=== PATIENT | male | born 1980 | race Asian ===

== ENCOUNTER 2019-11-28 19:29 | Emergency (ER) | payer OTHER, MEDICAID, SELFPAY ==
[2019-11-28 19:34] VITALS: BP 145/98; PULSE 89; RESP 16; TEMP 36.4; O2SAT 98
[2019-11-28] MEDS: IBUPROFEN 400 MG TABLET 800 MG PO (21:14)
[2019-11-28] MEDS: ACETAMINOPHEN 325 MG TABLET 975 MG PO (21:14)
[2019-11-28] MEDS: LIDO 1%/SOD BICARB 8.4% (10ML) 10 ML SYRINGE INJ (21:31)
[2019-11-28] MEDS: HYDROCODONE/ACET 5/325 PREPACK 1 BOTTLE MISC (21:31)
[2019-11-28] MEDS: DOXYCYCLINE HYCLATE 100 MG TABLET PO (21:31)
--- NOTE | 2019-11-29 01:24 | ED.SKABFB ---
HPI - Skin/Abscess/Foreign Bdy General Chief complaint: Skin/Abscess/Foreign Body Stated complaint: sore on lt thumb Time Seen by Provider: 11/28/19 19:38 Source: patient Mode of arrival: Ambulatory Limitations: no limitations History of Present Illness HPI narrative: 39-year-old male daily smoker with noncontributory medical history presents with a chief complaint of a red, painful, swelling area on the dorsum of his left thumb which has been worsening for the past few days. He denies any injury or cuts or other breaks in the skin. He denies any history of skin infections. He denies any systemic findings such as fever, chills nor nausea or vomiting. He has pain with range of motion or palpation. There are is no significant surrounding. For involvement of the hand. MD complaint: abscess/boil Onset (ago): day(s) Tetanus up to date: yes Location: L hand Severity: moderate Quality: aching Pain Consistency: constant Relieving factors: immobilization and rest Exacerbating factors: palpation and movement Context: none Associated symptoms: denies other symptoms Treatments prior to arrival: none Related Data Previous Rx's Medication Instructions Recorded doxycycline hyclate 100 mg PO BID #20 tab 11/28/19 Review of Systems Constitutional Constitutional: Denies chills, Denies fatigue, Denies fever(s), Denies frequent falls, Denies lethargy and Denies weakness Eyes Eyes: Denies change in vision, Denies eye discharge, Denies irritation and Denies loss of vision ENT Ears, Nose, Mouth, and Throat: Denies change in voice, Denies dizziness, Denies neck pain, Denies sore throat and Denies throat swelling Cardiovascular Cardiovascular: Denies chest pain, Denies irregular heart rhythm, Denies lightheadedness, Denies palpitations, Denies dyspnea, Denies dyspnea on exertion and Denies orthopnea Respiratory Respiratory: Denies cough, Denies dyspnea, Denies dyspnea on exertion and Denies wheezing Gastrointestinal Gastrointestinal: Denies abdominal pain, Denies change in bowel habits, Denies diarrhea, Denies nausea and Denies vomiting Musculoskeletal Musculoskeletal: Denies neck pain and Denies numbness Integumentary/Breasts Skin/Breast: Denies pruritus, Reports erythema, Denies rash, Reports skin pain and Reports skin swelling Neurologic Neurologic: Denies behavioral changes, Denies confusion, Denies dizziness, Denies frequent falls, Denies loss of vision, Denies numbness and Denies weakness Psychiatric Psychiatric: Denies anxiety, Denies behavioral changes, Denies confusion, Denies depression, Denies homicidal ideation and Denies suicidal ideation Endocrine Endocrine: Denies fatigue, Denies flushing and Denies palpitations Hematologic/Lymphatic Hematologic/Lymphatic: Denies easy bruising Allergic/Immunologic Allergic/Immunologic: Denies urticaria, Denies throat swelling and Denies wheezing Patient History Social History Smoking Status: Current some day smoker Smoking Status: Current some day smoker Exam Narrative Exam Narrative: GEN: AOx3 and in mild distress EYES: Pupils are equal, round, and reactive to light and accommodation. Extraoccular muscles are intact bilaterally. There is no subconjunctival hemorrhage or exudate. CHEST: Lungs are clear to auscultation bilaterally and free of wheezes, rales, or rhonchi. Heart rate is regular rhythm, there are no murmurs, clicks, rubs, or gallops. There is no chest wall tenderness. ABD: Abdomen is soft and nontender. There is no guarding or rebound. Bowel sounds are normal in all 4 quadrants. There is no mass or organomegaly. EXT: Full painless ROM of all extremities with no loss of sensation or strength. SKIN: 0.5cm erythematous, painful, swollen bump on dorsum of left thumb overlying proximal phalanx. No fusiform swelling, no streaking, no fluctuance or drainage. Otherwise warm, pink, and dry. No erythema or rash Initial Vital Signs Initial Vital Signs: Vital Signs Temperature 97.6 F 11/28/19 19:34 Pulse Rate 89 11/28/19 19:34 Respiratory Rate 16 11/28/19 19:34 Blood Pressure 145/98 H 11/28/19 19:34 Pulse Oximetry 98 11/28/19 19:34 Procedures Abscess I/D I&D #1: Site: hand (left thumb) Side (if applicable): left Local Anesthetic: lidocaine 1% and with bicarb Amount of anesthesia used (mL): 4 Technique: needle aspiration Amount of fluid expressed (mL): 0 Irrigation: No Packing used?: none Complications: pain and bleeding Course Orders Ordered: Discontinued Medications Acetaminophen (Tylenol) 975 mg PO NOW ONE Stop: 11/28/19 21:07 Last Admin: 11/28/19 21:14 Dose: 975 mg Documented by: DIDIER Hydrocodone Bitart/Acetaminophen (Vicodin 5/325 Prepack) 1 bottle MISC SEEINSTR ONE Stop: 11/28/19 21:24 Last Admin: 11/28/19 21:31 Dose: 1 bottle Documented by: DIDIER Doxycycline Hyclate (Vibramycin) 100 mg PO NOW ONE Stop: 11/28/19 21:24 Last Admin: 11/28/19 21:31 Dose: 100 mg Documented by: DIDIER Ibuprofen (Advil) 800 mg PO NOW ONE Stop: 11/28/19 21:08 Last Admin: 11/28/19 21:14 Dose: 800 mg Documented by: DIDIER Lidocaine/Sodium Bicarbonate (Buffered Lidocaine 10 Ml Syr) 10 ml INJ NOW ONE Stop: 11/28/19 21:24 Last Admin: 11/28/19 21:31 Dose: 10 ml Documented by: DIDIER Vital Signs Vital signs: Vital Signs - 8 hr 11/28/19 19:34 Temperature 97.6 F Pulse Rate 89 Respiratory Rate 16 Blood Pressure 145/98 H Pulse Oximetry 98 MDM - Skin/Abscess/Foreign Bdy MDM Narrative Medical decision making narrative: small superficial abscess with minimal cellulitis, no signs of deep infection or tenosynovitis Discharge Plan Departure Patient Disposition: Home Clinical Impression: Abscess of skin or subcutaneous tissue Qualifiers: Site of cutaneous abscess: unspecified site Qualified Code(s): L02.91 - Cutaneous abscess, unspecified Discharge Date/Time: 11/28/19 21:44 Instructions: DI for Cellulitis -- Adult Activity Restrictions/Additional Instructions: *You have been diagnosed with [ infection of left thumb ] *What to do: *Take medications as directed *Follow up with your primary care provider in 2-3 days, call for an appointment. Let them know you were seen in the Emergency Department and that we ask that you be seen in follow up *Return to ER if you should have any new, worsening or concerning symptoms Prescriptions: New doxycycline hyclate 100 mg tablet 100 mg PO BID Qty: 20 RF: 0 Stand Alone Forms: Work Release Note
== END 2019-11-28 21:44 | disposition home or self-care (01) ==
PROVIDERS: Emergency Provider Emergency Medicine
DX: L02.512 Cutaneous abscess of left hand (principal)
CPT/HCPCS: 10060; 99283

== ENCOUNTER 2019-11-29 15:53 | Emergency (ER) | payer OTHER, MEDICAID, SELFPAY ==
[2019-11-29 15:58] VITALS: BP 129/87; PULSE 102; TEMP 37; O2SAT 96; BMI 29.6
[2019-11-29] MEDS: DOXYCYCLINE HYCLATE 100 MG TABLET PO (16:42)
--- NOTE | 2019-11-29 16:44 | ED_ITS ---
HPI - Extremity Problem <DIANNA Olsen - Last Filed: 11/29/19 20:55> General Chief complaint: Extremity Problem,Nontraumatic Stated complaint: lt thumb infection, pain Time Seen by Provider: 11/29/19 16:06 Source: patient Mode of arrival: Ambulatory Limitations: no limitations History of Present Illness HPI Narrative: 39yo male presents emergency department for an infection on his l eft thumb. He was seen in the emergency department yesterday, needle aspiration of the abscess was performed. Patient was prescribed doxycycline which she has not picked up at this time as he had to switch pharmacies to get it filled. However, patient is concerned that the pain is increasing and would like pain medication. He denies any worsening redness, fevers, chills, nausea, vomiting, diarrhea, or other concerns. Related Data Previous Rx's Medication Instructions Recorded doxycycline hyclate 100 mg PO BID #20 tab 11/28/19 ketorolac 10 mg PO Q6H PRN 5 Days #10 tab 11/29/19 Allergies Allergy/AdvReac Type Severity Reaction Status Date / Time No Known Drug Allergies Allergy Verified 11/29/19 16:00 Review of Systems <DIANNA Olsen - Last Filed: 11/29/19 20:55> Review of Systems Narrative: REVIEW OF SYSTEMS: GENERAL: Denies fever or chills. HENT: Denies head trauma. CARDIOVASCULAR: Denies syncope. MUSCULOSKELETAL: Denies weakness, or deformities. INTEGUMENTARY: Complains of abscess to left thumb, see HPI. NEURO: Denies numbness or tingling. Patient History <DIANNA Olsen - Last Filed: 11/29/19 20:55> Medical History No significant medical problems (Acute) Social History Smoking Status: Current some day smoker Smoking Status: Current some day smoker alcohol intake frequency: holidays/special occasions only Substance Use Type: does not use Exam <DIANNA Olsen - Last Filed: 11/29/19 20:55> Initial Vital Signs Initial Vital Signs: Vital Signs Temperature 98.6 F 11/29/19 15:58 Pulse Rate 102 H 11/29/19 15:58 Blood Pressure 129/87 11/29/19 15:58 Pulse Oximetry 96 11/29/19 15:58 PHYSICAL EXAMINATION: GENERAL: Well groomed, alert, and cooperative. Answers questions promptly and appropriately. Vital signs noted. HENT: Normocephalic, atraumatic. RESPIRATORY: Normal respiratory rate, trachea midline, airway patent. No stridor, nasal flaring or accessory muscle use. MUSCULOSKELETAL: Normal gait and coordination. Equal tone and mass bilaterally. EXTREMITIES: CMS intact. Moves all extremities. SKIN: Warm, dry, soft, appropriate color for ethnicity. There is a 1 cm abscess with surrounding 2 cm of erythema to the dorsal aspect of left thumb below DIP joint. Alcohol swab was used to soften scab, 3 mm of purulent drainage expressed. Full range of motion of thumb and joints. NEURO: Alert and Oriented X 3. Good coordination. PSYCH: Appropriate affect and mood. <Uri De Leon MD - Last Filed: 12/01/19 07:56> Initial Vital Signs Initial Vital Signs: Vital Signs Temperature 98.6 F 11/29/19 15:58 Pulse Rate 102 H 11/29/19 15:58 Blood Pressure 129/87 11/29/19 15:58 Pulse Oximetry 96 11/29/19 15:58 Course <DIANNA Olsen - Last Filed: 11/29/19 20:55> Course Course Narrative: Patient was given a dose of doxycycline in the department today. Orders Ordered: Discontinued Medications Doxycycline Hyclate (Vibramycin) 100 mg PO NOW ONE Stop: 11/29/19 16:38 Last Admin: 11/29/19 16:42 Dose: 100 mg Documented by: BTONER Vital Signs Vital signs: Vital Signs - 8 hr 11/29/19 15:58 11/29/19 16:51 Temperature 98.6 F Pulse Rate 102 H 92 H Respiratory Rate 16 Blood Pressure 129/87 142/65 H Pulse Oximetry 96 96 <Uri De Leon MD - Last Filed: 12/01/19 07:56> Orders Ordered: Discontinued Medications Doxycycline Hyclate (Vibramycin) 100 mg PO NOW ONE Stop: 11/29/19 16:38 Last Admin: 11/29/19 16:42 Dose: 100 mg Documented by: BTONER Vital Signs Vital signs: Vital Signs - 8 hr 11/29/19 15:58 11/29/19 16:51 Temperature 98.6 F Pulse Rate 102 H 92 H Respiratory Rate 16 Blood Pressure 129/87 142/65 H Pulse Oximetry 96 96 MDM - Extremity (Nontraumatic) <Tg SaleemDIANNA epstein - Last Filed: 11/29/19 20:55> Medical Records Attestation: I reviewed the patient's medical records. Lab Data Attestation: I reviewed the patient's lab results. MDM Narrative Medical decision making narrative: 39-year-old male presenting to the emergency department for left thumb or infection. Patient was seen in the emergency department for the same yesterday, was given a prescription for doxycycline but has not filled it. However, patient was concerned about the pain and was requesting pain medication. Upon evaluation, a small amount of purulent drainage was expressed after wound was cleaned with an alcohol swab. Patient was given a dose of doxycycline in the clinic. He is given a prescription for ketorolac to help with pain. He was encouraged to start antibiotics dizziness possible. Return precautions given for new or sinusitis. Patient is hemodynamically stable without fever, redness has not increased. No tenderness to joints or or decreased joint movement. Patient agreed to plan of care. Discharge Plan Departure Patient Disposition: Home Clinical Impression: Abscess Discharge Date/Time: 11/29/19 17:00 Instructions: DI for Cellulitis -- Adult Activity Restrictions/Additional Instructions: Thank you for entrusting me with your care today. As discussed, please take the antibiotics that were prescribed you. I prescribed you some ketorolac, do not take ibuprofen with this. Soaking your thumb in warm salt water. Follow up with her primary care provider in 1-2 weeks for further evaluation. Return emergency department for any new or worsening symptoms. Prescriptions: New ketorolac 10 mg tablet 10 mg PO Q6H PRN (Reason: pain) 5 Days Qty: 10 RF: 0 No Action doxycycline hyclate 100 mg tablet 100 mg PO BID Qty: 20 RF: 0 <Uri De Leon MD - Last Filed: 12/01/19 07:56> Cosign ED Attending Cosignature Attestation: I was immediately available in the department for consultation. This documentation has been reviewed and I agree with assessment and plan. Supervised by Uri De Leon MD
--- NOTE | 2019-11-29 16:47 | PC.NURSE ---
pt has abcess on left thumb, about the size of nickel.
[2019-11-29 16:51] VITALS: BP 142/65; PULSE 92; RESP 16; O2SAT 96
== END 2019-11-29 17:00 | disposition home or self-care (01) ==
PROVIDERS: Emergency Provider Nurse Practitioner
DX: L02.512 Cutaneous abscess of left hand (principal)
CPT/HCPCS: 99283